=== PATIENT | female | born 1935 | race Caucasian/White ===

== ENCOUNTER 2021-10-13 17:18 | Emergency (ER) | payer MEDICARE ==
[~2021-10-13] VITALS: Ht 160 cm; Wt 79.5 kg
[2021-10-13] MEDS ORDERED: LIDOCAINE 1% INJ 50 ML (XYLOCAINE) VIAL ONE (17:23)
[2021-10-13] MEDS ORDERED: cefTRIAXone 1,000 MG VIAL IM ONE (18:00)
[2021-10-13] MEDS ORDERED: TETANUS & DIPHTHERIA TOX,ADULT 0.5 ML (TENIVAC) IM ONE (18:00)
[2021-10-13] MEDS ORDERED: LIDOCAINE 1% INJ 20 ML VIAL INJ ONE (18:00)
--- NOTE | 2021-10-13 18:17 | ED Fall/Injury ---
General Chief Complaint: Laceration Stated Complaint: FALL Nursing Triage Note: Patient presents to the ED via EMS with c/o laceration to left forearm and left upper arm avulsion. Patient reports that she tripped over some extension cords in the bathroom causing her to fall. States when she fell her arm hit the cabinent handles causing the laceration. Denies any loss of conciousness. Source: patient, EMS Exam Limitations: no limitations History of Present Illness Date Seen by Provider: Oct 13, 2021 Time Seen by Provider: 17:19 Initial Comments Right handed 85-year-old female patient brought in by EMS because a fall in her bathroom after she tripped on a cord. Patient denies head injury or loss of consciousness. Patient had left arm and forearm laceration. Patient does not remember her last tetanus immunization. Occurred: just prior to arrival Allergies and Home Medications Allergies Coded Allergies: No Known Drug Allergies (Unverified , 10/13/21) Patient Home Medication List Home Medication List Reviewed: Yes Cephalexin (Cephalexin) 500 Mg Tablet, 500 MG PO Q8H Prescribed by: Sarah martin on 10/13/211818 Review of Systems Review of Systems Constitutional: no symptoms reported Eyes: No Symptoms Reported Ears, Nose, Mouth, Throat: no symptoms reported Respiratory: no symptoms reported Cardiovascular: no symptoms reported Gastrointestinal: no symptoms reported Genitourinary: no symptoms reported Musculoskeletal: see HPI Skin: see HPI Psychiatric/Neurological: No Symptoms Reported All Other Systems Reviewed Negative Unless Noted: Yes Past Tagjlhx-Iuccgq-Cukixp Hx Patient Social History Tobacco Use?: No Substance use?: No Alcohol Use?: No Pt feels they are or have been: No Past Medical History Surgery/Hospitalization HX: Hysterectomy; CVA; Seizures; macular degeneration; HTN; High Cholesterol; B12 deficiency Physical Exam Vital Signs Vital Signs - First Documented 10/13/21 17:20 Temp 36.7 Pulse 82 Resp 18 B/P (MAP) 196/88 (124) Pulse Ox 93 O2 Delivery Room Air Capillary Refill : Less Than 3 Seconds Height, Weight, BMI Height: '" Weight: lbs. oz. kg; 31.00 BMI Method: General Appearance: mild distress HEENT: PERRL/EOMI, normal ENT inspection Neck: non-tender, full range of motion Cardiovascular: normal peripheral pulses, regular rate, rhythm, no edema Respiratory: chest non-tender, lungs clear, normal breath sounds Back: normal inspection Extremities: other (Left arm with large skin tear, large laceration of left upper forearm with exposed and lacerated fatty tissue about 10 cm and a large skin tear, no skin covering the fatty tissue) Neurologic/Psychiatric: normal mood/affect Procedures/Interventions Wound Location: Upper Extremities Wound Length (cm): 10 Wound's Depth, Shape: into muscle, irregular, flap Wound Explored: no foreign body removed Irrigated w/ Saline (ccs): 250 Betadine Prep?: No Anesthesia: 1% Lidocaine Volume Anesthetic (ccs): 5 Wound Debrided: None Suture: Vicryl Suture Size: 4-0 10 cm laceration of left forearm with exposed fatty tissue with laceration and missing skin with large skin tear was repaired with 3 sutures of Vicryl 5 oh to approximate fatty tissue. Then the skin was put in place with Dermabond and Vaseline gauze, Telfa and Coban was applied. Patient also had a skin tear of left forearm that repaired with Dermabond and Vaseline gauze and tape for and Coban was applied. Patient tolerated the procedure well. Progress/Results/Core Measures Results/Orders My Orders Orders - SARAH MARTIN MD Lidocaine 1% Inj 50 Ml (Xylocaine 1% Inj (10/13/21 17:23) Tetanus/Diphtheria Inj (Adult) (Tenivac (10/13/21 18:00) Ceftriaxone (Rocephin) (10/13/21 18:00) Lidocaine 1% Inj 20 Ml (Xylocaine 1% Inj (10/13/21 18:00) Medications Given in ED Current Medications Medications Dose Ordered Sig/Rachel Route Start Time Stop Time Status Last Admin Dose Admin Ceftriaxone Sodium 1,000 mg ONCE ONCE IM 10/13/21 18:00 10/13/21 18:01 DC 10/13/21 18:13 1,000 MG Lidocaine HCl 2.1 ml ONCE ONCE INJ 10/13/21 18:00 10/13/21 18:01 DC 10/13/21 18:13 2.1 ML Lidocaine HCl 50 ml STK-MED ONCE .ROUTE 10/13/21 17:23 10/13/21 17:25 DC 10/13/21 17:23 50 ML Tetanus/ Diphtheria Toxoids 0.5 ml ONCE ONCE IM 10/13/21 18:00 10/13/21 18:01 DC 10/13/21 18:14 0.5 ML Vital Signs/I&O 10/13/21 10/13/21 17:20 18:21 Temp 36.7 36.7 Pulse 82 82 Resp 18 18 B/P (MAP) 196/88 (124) 196/88 Pulse Ox 93 93 O2 Delivery Room Air Room Air Blood Pressure Mean: 124 Progress Progress Note : Progress Note Evaluation of patient in ER showed 85-year-old female patient with a fall at home and injury to left upper extremity with skin tear and laceration deep to subcutaneous fat without covering the skin. Subcutaneous fat was repaired with Vicryl and skin covered the subcutaneous as much as possible with applying Dermabond. Arm skin tear was repaired with Dermabond. Vaseline gauze was applied and nonadhesive dressing and Coban was applied. Patient treated with Rocephin in ER and prescription for cephalexin for 7 days was given and advised to follow-up with his primary care physician in 3 days for change of dressing and check of the wound. Patient did not want to have pain medication in ER or prescription of pain medication for home. Departure Impression Primary Impression: Laceration of left forearm Qualified Codes: S51.812A - Laceration without foreign body of left forearm, initial encounter Additional Impressions: Skin tear of left upper extremity Fall at home Qualified Codes: W19.XXXD - Unspecified fall, subsequent encounter; Y92.009 - Unspecified place in unspecified non-institutional (private) residence as the place of occurrence of the external cause Disposition: HOME, SELF-CARE Condition: Improved Departure-Patient Inst. Decision time for Depature: 18:17 Patient Instructions: Laceration Repair With Stitches ED, Preventing Falls ED, Laceration Repair With Glue (DC), Wound Care ED Add. Discharge Instructions: Keep wound clean and dry Follow-up with your primary care physician on this Tuesday Return to ER as needed All discharge instructions reviewed with patient and/or family. Voiced understanding. Scripts Cephalexin (Cephalexin) 500 Mg Tablet 500 MG PO Q8H, #20 TAB 0 Refills Prov: SARAH MARTIN MD 10/13/21 SARAH MARTIN MD Oct 13, 2021 18:17
[2021-10-13] MEDS ORDERED: CEPH500T PO (18:19)
[2021-10-13 18:21] VITALS: BP 196/88
== END 2021-10-13 18:21 | disposition home or self-care (01) ==
LOC: ER FS 17:20
DX: S51.812A Laceration without foreign body of left forearm, initial encounter (principal); S41.102A Unspecified open wound of left upper arm, initial encounter; Z23 Encounter for immunization; W01.198A Fall on same level from slipping, tripping and stumbling with subsequent striking against other object, initial encounter; Y92.002 Bathroom of unspecified non-institutional (private) residence as the place of occurrence of the external cause
CPT/HCPCS: 99283; A6223; 90714

== ENCOUNTER 2022-04-03 14:46 | Emergency (ER) | payer MEDICARE ==
[~2022-04-03] VITALS: Ht 154.9 cm; Wt 77.1 kg
[~2022-04-03 14:46] MED LIST: CEPH500T PO
[2022-04-03 15:12] LABS: BASOPHILS # (AUTO) 0.1 10^3/uL (0.0-0.1); BASOPHILS % (AUTO) 1 % (0-10); EOSINOPHILS # (AUTO) 0.3 10^3/uL (0.0-0.3); EOSINOPHILS % (AUTO) 2 % (0-10); HEMATOCRIT 28 % (35-52); HEMOGLOBIN 9.2 g/dL (11.5-16.0); LYMPHOCYTES # (AUTO) 2.2 10^3/uL (1.0-4.0); LYMPHOCYTES % (AUTO) 20 % (12-44); MEAN CORPUSCULAR HEMOGLOBIN 38 pg (25-34); MEAN CORPUSCULAR HGB CONC 34 g/dL (32-36); MEAN CORPUSCULAR VOLUME 115 fL (80-99); MEAN PLATELET VOLUME 10.3 fL (9.0-12.2); MONOCYTES # (AUTO) 0.9 10^3/uL (0.0-1.0); MONOCYTES % (AUTO) 8 % (0-12); NEUTROPHILS # (AUTO) 7.8 10^3/uL (1.8-7.8); NEUTROPHILS % (AUTO) 69 % (42-75); PLATELET COUNT 367 10^3/uL (130-400); WHITE BLOOD COUNT 11.3 10^3/uL (4.3-11.0)
--- NOTE | 2022-04-03 15:20 | ED Chest Pain ---
General Chief Complaint: Chest Pain Stated Complaint: CHEST PAIN Source: patient Exam Limitations: no limitations History of Present Illness Date Seen by Provider: Apr 03, 2022 Time Seen by Provider: 15:00 Initial Comments Patient is an 86-year-old female who presents with sided rib pain radiating underneath left breast. Pain is moderate to severe reproduces with palpation movement and position change. It is partially relieved with rest. Patient is taken ibuprofen with limited relief. She denies fall or injury and period.. No fever cough, sore throat, abdominal pain, leg pain or swelling. No other acute symptoms or complaints. Timing/Duration: 1-3 hours Severity/Quality: moderate Location: other Radiation: other Activities at Onset: other Modifying Factors: improves with other Allergies and Home Medications Allergies Coded Allergies: No Known Drug Allergies (Unverified , 10/13/21) Patient Home Medication List Home Medication List Reviewed: Yes Cephalexin (Cephalexin) 500 Mg Tablet, 500 MG PO Q8H Prescribed by: Karen herrera on 10/13/211818 Review of Systems Review of Systems Constitutional: see HPI EENTM: See HPI Respiratory: See HPI Cardiovascular: See HPI Gastrointestinal: See HPI Genitourinary: See HPI Musculoskeletal: see HPI Past Bxpmqtc-Jdgiwe-Xuebni Hx Patient Social History Tobacco Use?: No Past Medical History Surgery/Hospitalization HX: Hysterectomy; CVA; Seizures; macular degeneration; HTN; High Cholesterol; B12 deficiency Physical Exam Vital Signs Capillary Refill : Height, Weight, BMI Height: '" Weight: lbs. oz. kg; 31.00 BMI Method: General Appearance: Mild Distress (Secondary pain) HEENT: PERRL/EOMI Neck: Non Tender, Supple Respiratory: Chest Non Tender, Lungs Clear, Normal Breath Sounds Cardiovascular: Regular Rate, Rhythm, No Edema, No Gallop, Other (Reproducible back pain over mid thoracic pain. Pain reproduced with palpation and movement.) Gastrointestinal: Soft Extremity: Non Tender, No Calf Tenderness Neurologic/Psychiatric: Alert, Oriented x3 Skin: Normal Color Focused Exam Sepsis Stage: Ruled Out Procedures/Interventions Suture Size: 4-0 Progress/Results/Core Measures Results/Orders Lab Results Laboratory Tests Test 04/03/22 14:34 Range/Units White Blood Count 11.3 H 4.3-11.0 10^3/uL Red Blood Count 2.40 L 3.80-5.11 10^6/uL Hemoglobin 9.2 L 11.5-16.0 g/dL Hematocrit 28 L 35-52 % Mean Corpuscular Volume 115 H 80-99 fL Mean Corpuscular Hemoglobin 38 H 25-34 pg Mean Corpuscular Hemoglobin Concent 34 32-36 g/dL Red Cell Distribution Width 13.6 10.0-14.5 % Platelet Count 367 130-400 10^3/uL Mean Platelet Volume 10.3 9.0-12.2 fL Immature Granulocyte % (Auto) 0 % Neutrophils (%) (Auto) 69 42-75 % Lymphocytes (%) (Auto) 20 12-44 % Monocytes (%) (Auto) 8 0-12 % Eosinophils (%) (Auto) 2 0-10 % Basophils (%) (Auto) 1 0-10 % Neutrophils # (Auto) 7.8 1.8-7.8 10^3/uL Lymphocytes # (Auto) 2.2 1.0-4.0 10^3/uL Monocytes # (Auto) 0.9 0.0-1.0 10^3/uL Eosinophils # (Auto) 0.3 0.0-0.3 10^3/uL Basophils # (Auto) 0.1 0.0-0.1 10^3/uL Immature Granulocyte # (Auto) 0.0 0.0-0.1 10^3/uL Sodium Level 138 135-145 MMOL/L Potassium Level 4.3 3.6-5.0 MMOL/L Chloride Level 101 98-107 MMOL/L Carbon Dioxide Level 25 21-32 MMOL/L Anion Gap 12 5-14 MMOL/L Blood Urea Nitrogen 21 H 7-18 MG/DL Creatinine 1.01 0.60-1.30 MG/DL Estimat Glomerular Filtration Rate 54 BUN/Creatinine Ratio 21 Glucose Level 104 70-105 MG/DL Calcium Level 9.4 8.5-10.1 MG/DL Corrected Calcium 8.5-10.1 MG/DL Total Bilirubin 0.3 0.1-1.0 MG/DL Aspartate Amino Transf (AST/SGOT) 14 5-34 U/L Alanine Aminotransferase (ALT/SGPT) 15 0-55 U/L Alkaline Phosphatase 113 40-136 U/L Troponin I < 0.30 <0.30 NG/ML Total Protein 7.3 6.4-8.2 GM/DL Albumin 4.6 H 3.2-4.5 GM/DL My Orders Orders - NAZIA HEREDIA DO Cbc With Automated Diff (04/03/22 15:07) Comprehensive Metabolic Panel (04/03/22 15:07) Troponin I Fs (04/03/22 15:07) Chest 1 View Ap/Pa Only (04/03/22 15:07) Ekg Tracing (04/03/22 15:07) Hydrocodone/Apap 5/325 Tablet (Lortab 5 (04/03/22 15:30) Cyclobenzaprine Tablet (Flexeril Tablet) (04/03/22 15:30) Departure Communication (Admissions) EKG: Normal sinus rhythm, no acute ST-T wave changes. Chest x-ray: No acute cardiopulmonary disease on preliminary ED review. Patient with reproducible mechanical chest wall pain reproduces on exam. Patient with normal EKG troponin. Recommendations are supportive care watchful waiting and PCP follow-up. Patient verbalizes understanding agreement discharge instructions prior to departure Impression Primary Impression: Chest wall pain Disposition: 01 HOME, SELF-CARE Condition: Stable Departure-Patient Inst. Decision time for Depature: 15:32 Referrals: GUSTAVO LAWTON MD (PCP) Primary Care Physician Patient Instructions: Upper Back Pain Add. Discharge Instructions: You were evaluated in the emergency department for back pain likely related to displaced rib. Please take ibuprofen for pain and hydrocodone and Flexeril as needed for additional relief. Avoid strenuous physical activity and heavy lifting. Follow-up with your PCP in 3 to 5 days for reevaluation if symptoms persist. Return to the ED if new or concerning symptoms. All discharge instructions reviewed with patient and/or family. Voiced understanding. NAZIA HEREDIA DO Apr 03, 2022 15:20
[2022-04-03 15:21] LABS: ALANINE AMINOTRANSFERASE 15 U/L (0-55); ALBUMIN 4.6 GM/DL (3.2-4.5); ALKALINE PHOSPHATASE 113 U/L (40-136); BILIRUBIN,TOTAL 0.3 MG/DL (0.1-1.0); BUN/CREATININE RATIO 21; CALCIUM 9.4 MG/DL (8.5-10.1); CARBON DIOXIDE 25 MMOL/L (21-32); CHLORIDE 101 MMOL/L (98-107); CREATININE SERUM 1.01 MG/DL (0.60-1.30); GFR ESTIMATED 54; GLUCOSE 104 MG/DL (70-105); POTASSIUM 4.3 MMOL/L (3.6-5.0); SODIUM 138 MMOL/L (135-145); TOTAL PROTEIN 7.3 GM/DL (6.4-8.2)
--- NOTE | 2022-04-03 15:26 | Diagnostic Imaging Report ---
PATIENT HISTORY: CP. TECHNIQUE: Single frontal view of the chest. COMPARISON: None. FINDINGS: The lung volumes are normal. No focal consolidation is seen. No large pleural effusion or pneumothorax is seen. The cardiomediastinal silhouette is normal in size and contour. No acute osseous abnormality is seen. IMPRESSION: No acute pulmonary abnormality seen. Dictated by: Dictated on workstation # [id number]
[2022-04-03] MEDS ORDERED: HYDROcodone/APAP 5 MG/325 MG (LORTAB) TAB PO ONE (15:30)
[2022-04-03] MEDS ORDERED: CYCLOBENZAPRINE 10 MG (FLEXERIL) TAB PO SCH (15:30)
[2022-04-03 15:39] VITALS: BP 152/67
[2022-04-03] MEDS ORDERED: ACHD5005 PO (15:54)
[2022-04-03] MEDS ORDERED: CYCL10TA25 PO (15:54)
== END 2022-04-03 15:41 | disposition home or self-care (01) ==
LOC: EDUNIT# 14:46 → ER FS 14:47
DX: R07.89 Other chest pain (principal)
CPT/HCPCS: 36415; 71045; 80053; 84484; 85025; 93005

== ENCOUNTER 2022-05-04 16:01 | Emergency (ER) | payer MEDICARE ==
[~2022-05-04] VITALS: Ht 154 cm; Wt 81.0 kg
[~2022-05-04 16:01] MED LIST changes: +ACHD5005 PO; +CYCL10TA25 PO
[2022-05-04 16:56] LABS: BASOPHILS # (AUTO) 0.1 10^3/uL (0.0-0.1); BASOPHILS % (AUTO) 1 % (0-10); EOSINOPHILS # (AUTO) 0.1 10^3/uL (0.0-0.3); EOSINOPHILS % (AUTO) 1 % (0-10); LYMPHOCYTES % (AUTO) 22 % (12-44); MEAN CORPUSCULAR HEMOGLOBIN 36 pg (25-34); MEAN CORPUSCULAR HGB CONC 33 g/dL (32-36); MEAN CORPUSCULAR VOLUME 110 fL (80-99); MEAN PLATELET VOLUME 12.4 fL (9.0-12.2); MONOCYTES # (AUTO) 0.7 10^3/uL (0.0-1.0); MONOCYTES % (AUTO) 7 % (0-12); NEUTROPHILS # (AUTO) 6.5 10^3/uL (1.8-7.8); NEUTROPHILS % (AUTO) 69 % (42-75); PLATELET COUNT 273 10^3/uL (130-400); WHITE BLOOD COUNT 9.3 10^3/uL (4.3-11.0)
[2022-05-04 16:57] LABS: BILIRUBIN,URINE NEGATIVE (NEGATIVE); CLARITY,URINE SL CLOUDY; COLOR,URINE YELLOW; GLUCOSE, URINE (UA) NEGATIVE (NEGATIVE); KETONES,URINE NEGATIVE (NEGATIVE); LEUKOCYTE ESTERASE ,URINE TRACE (NEGATIVE); NITRITE,URINE POSITIVE (NEGATIVE); PROTEIN,URINE TRACE (NEGATIVE)
[2022-05-04 17:02] LABS: HEMOGLOBIN 6.4 g/dL (11.5-16.0)
[2022-05-04 17:03] LABS: HEMATOCRIT 19 % (35-52)
--- NOTE | 2022-05-04 17:05 | ED General ---
General Chief Complaint: General Problems/Pain Stated Complaint: LOW HEMOGLOBIN, LOW KIDNEY FUNCTION, ABNORMAL LABS Nursing Triage Note: Patient has presented to ER with cc of needing labs repeated. She had labs drawn last week and the results were off and she was called today to go to the ER for labs to be redrawn. Her only complaint is that she has a sore on her bottom. History of Present Illness Date Seen by Provider: May 04, 2022 Time Seen by Provider: 16:14 Initial Comments 86-year-old female with PMH of HTN, is sent here by her PCP office due to abnormal lab values from labs drawn a week ago in the clinic. Patient was told to come into the ER to repeat labs. Patient has no symptoms whatsoever at this time. Patient has no history of anemia and has never needed a blood transfusion before. Patient denies melena, hematemesis, hematuria, abdominal pain or chest pain. Patient does not take any blood thinners Allergies and Home Medications Allergies Coded Allergies: No Known Drug Allergies (Unverified , 10/13/21) Patient Home Medication List Home Medication List Reviewed: Yes Cephalexin (Cephalexin) 500 Mg Tablet, 500 MG PO Q8H Prescribed by: Karen herrera on 10/13/21 181 Cyclobenzaprine HCl (Cyclobenzaprine HCl) 10 Mg Tablet, 10 MG PO Q8H PRN for SPASMS Prescribed by: NAZIA HEREDIA on 04/03/22 1554 Hydrocodone/Acetaminophen (Hydrocodone-Acetamin 5-325 mg) 5 Mg-325 Mg Tablet, 1 TAB PO Q4H PRN for PAIN-MODERATE (5-7) Prescribed by: NAZIA HEREDIA on 04/03/22 1555 Review of Systems Review of Systems Constitutional: no symptoms reported EENTM: no symptoms reported Respiratory: no symptoms reported Cardiovascular: no symptoms reported Gastrointestinal: no symptoms reported Genitourinary: no symptoms reported Musculoskeletal: no symptoms reported Skin: lesions Psychiatric/Neurological: No Symptoms Reported Hematologic/Lymphatic: No Symptoms Reported Immunological/Allergic: no symptoms reported Past Ckdrnvo-Uvqyef-Fnpxmh Hx Patient Social History Tobacco Use?: No Use of E-Cig and/or Vaping dev: No Substance use?: No Alcohol Use?: No Past Medical History Surgery/Hospitalization HX: Hysterectomy; CVA; Seizures; macular degeneration; HTN; High Cholesterol; B12 deficiency Physical Exam Vital Signs Vital Signs - First Documented 05/04/22 16:39 Temp 36.0 Pulse 73 Resp 16 B/P (MAP) 165/73 (103) Pulse Ox 99 O2 Delivery Room Air Capillary Refill : Height, Weight, BMI Height: '" Weight: lbs. oz. kg; 34.00 BMI Method: General Appearance: No Apparent Distress, WD/WN HEENT: PERRL/EOMI, Normal ENT Inspection Neck: Full Range of Motion, Normal Inspection Respiratory: Chest Non Tender, Lungs Clear Cardiovascular: Regular Rate, Rhythm Gastrointestinal: Normal Bowel Sounds, Non Tender, Soft Back: Normal Inspection, No CVA Tenderness Neurologic/Psychiatric: Alert, Oriented x3, No Motor/Sensory Deficits Skin: Other (Patient has an early decubitus ulcer on her right buttock. Patient has bruising on her anterior shins as well as the right side of her face on her maxilla.) Lymphatic: No Adenopathy Procedures/Interventions Suture Size: 4-0 Progress/Results/Core Measures Suspected Sepsis SIRS Temperature: Pulse: 73 Respiratory Rate: 16 Laboratory Tests 05/04/22 16:30: White Blood Count 9.3 Blood Pressure 165 /73 Mean: 103 Laboratory Tests 05/04/22 16:30: Creatinine 1.42H, Platelet Count 273, Total Bilirubin < 0.2 Results/Orders Lab Results Laboratory Tests Test 05/04/22 16:15 05/04/22 16:30 Range/Units Urine Color YELLOW Urine Clarity SL CLOUDY Urine pH 6.0 5-9 Urine Specific [place] 1.015 L 1.016-1.022 Urine Protein TRACE H NEGATIVE Urine Glucose (UA) NEGATIVE NEGATIVE Urine Ketones NEGATIVE NEGATIVE Urine Nitrite POSITIVE H NEGATIVE Urine Bilirubin NEGATIVE NEGATIVE Urine Urobilinogen 0.2 < = 1.0 MG/DL Urine Leukocyte Esterase TRACE H NEGATIVE Urine RBC (Auto) TRACE-I H NEGATIVE Urine RBC 2-5 H /HPF Urine WBC 25-50 H /HPF Urine Squamous Epithelial Cells 0-2 /HPF Urine Crystals NONE /LPF Urine Bacteria LARGE H /HPF Urine Casts NONE /LPF Urine Mucus NEGATIVE /LPF Urine Culture Indicated YES White Blood Count 9.3 4.3-11.0 10^3/uL Red Blood Count 1.76 L 3.80-5.11 10^6/uL Hemoglobin 6.4 *L 11.5-16.0 g/dL Hematocrit 19 *L 35-52 % Mean Corpuscular Volume 110 H 80-99 fL Mean Corpuscular Hemoglobin 36 H 25-34 pg Mean Corpuscular Hemoglobin Concent 33 32-36 g/dL Red Cell Distribution Width 14.0 10.0-14.5 % Platelet Count 273 130-400 10^3/uL Mean Platelet Volume 12.4 H 9.0-12.2 fL Immature Granulocyte % (Auto) 0 % Neutrophils (%) (Auto) 69 42-75 % Lymphocytes (%) (Auto) 22 12-44 % Monocytes (%) (Auto) 7 0-12 % Eosinophils (%) (Auto) 1 0-10 % Basophils (%) (Auto) 1 0-10 % Neutrophils # (Auto) 6.5 1.8-7.8 10^3/uL Lymphocytes # (Auto) 2.0 1.0-4.0 10^3/uL Monocytes # (Auto) 0.7 0.0-1.0 10^3/uL Eosinophils # (Auto) 0.1 0.0-0.3 10^3/uL Basophils # (Auto) 0.1 0.0-0.1 10^3/uL Immature Granulocyte # (Auto) 0.0 0.0-0.1 10^3/uL Sodium Level 137 135-145 MMOL/L Potassium Level 3.2 L 3.6-5.0 MMOL/L Chloride Level 103 98-107 MMOL/L Carbon Dioxide Level 25 21-32 MMOL/L Anion Gap 9 5-14 MMOL/L Blood Urea Nitrogen 27 H 7-18 MG/DL Creatinine 1.42 H 0.60-1.30 MG/DL Estimat Glomerular Filtration Rate 36 BUN/Creatinine Ratio 19 Glucose Level 104 70-105 MG/DL Calcium Level 8.3 L 8.5-10.1 MG/DL Corrected Calcium 8.9 8.5-10.1 MG/DL Magnesium Level 1.7 1.6-2.4 MG/DL Total Bilirubin < 0.2 0.1-1.0 MG/DL Aspartate Amino Transf (AST/SGOT) 14 5-34 U/L Alanine Aminotransferase (ALT/SGPT) 17 0-55 U/L Alkaline Phosphatase 74 40-136 U/L Total Protein 6.3 L 6.4-8.2 GM/DL Albumin 3.2 3.2-4.5 GM/DL My Orders Orders - CHARISMA,BRITT L MD Cbc With Automated Diff (05/04/22 16:14) Comprehensive Metabolic Panel (05/04/22 16:14) Magnesium (05/04/22 16:14) Ua Culture If Indicated (05/04/22 16:14) Urine Culture (05/04/22 16:15) Occult Blood Stool (05/04/22 17:59) Fecal Occult Bedside (05/04/22 17:59) Ct Abdomen/Pelvis Wo (05/04/22 18:01) Chest 1 View Ap/Pa Only (05/04/22 18:02) Iron Tibc %Sat & Ferritin (05/04/22 18:02) Vital Signs/I&O 05/04/22 16:39 Temp 36.0 Pulse 73 Resp 16 B/P (MAP) 165/73 (103) Pulse Ox 99 O2 Delivery Room Air Capillary Refill : Blood Pressure Mean: 103 Progress Note : Progress Note 1. ACUTE ANEMIA: - Hb is 6.4 in the ER. One week ago, it was 7.2 and in Feb 2022 it was 9. - Iron studies sent - CT ABD: No acute finding - CXR: Normal - Pt will need to be transferred for type & screen and blood transfusion. Discussed with Dr. Jennings and patient excepted to [facility] -Patient is asymptomatic with stable vitals 2. ACUTE KIDNEY INJURY: - s. Creatinine is 1.42 - One week afo the creatinine was 1.7. so there is improvement - Could be triggered by UTI 3. ACUTE CYSTITIS WITH HEMATURIA: - UA is positive for leukocyte esterase, nitrates, bacteria, RBCs. -Ceftriaxone 1 g IV stat in the ER 4. MILD HYPOKALEMIA: - s. K is 3.2 - Oral potassium given in ER 40mEq oral Diagnostic Imaging Diagonstic Imaging: Xray, CT Plain Films/CT/US/NM/MRI: chest, abdomen Comments [facility]. [place], [place] NAME: LETICIA LOMAX Elly [facility] REC#: [id number] PT STATUS: REG ER : 1935 PHYSICIAN: BRITT ZAFAR MD ADMIT DATE: 05/04/22/ER FS Draft Date of Exam:05/04/22 CT ABDOMEN/PELVIS WO PROCEDURE: CT abdomen and pelvis without contrast. TECHNIQUE: Multiple contiguous axial images were obtained through the abdomen and pelvis without the use of intravenous contrast. Auto Exposure Controls were utilized during the CT exam to meet ALARA standards for radiation dose reduction. INDICATION: Low hemoglobin. No prior studies are available for comparison. Lung bases are clear. The liver and gallbladder are unremarkable. There is no biliary duct dilatation. Pancreas and spleen are unremarkable. No adrenal mass on the right is detected. There is a nodule in the left adrenal gland measuring 18 mm. No calculi or hydronephrosis is identified. Aorta is heavily calcified. The bowel loops are normal in caliber. There is extensive diverticulosis of the sigmoid but no evidence of acute diverticulitis. No free fluid or fluid collection is seen. There is no free air. Bladder is decompressed. Uterus is surgically absent. IMPRESSION: 1. Uncomplicated diverticulosis. 2. No evidence of intraperitoneal or retroperitoneal hemorrhage. 3. Left adrenal nodule, indeterminate. Dictated on workstation # [id number] Dict: 05/04/221858 Trans: 05/04/221908 SOM [id number] Interpreted by: JOSE R HAGEN MD Electronically signed by: [facility] [place] [place] NAME: LETICIA LOMAX [facility] REC#: [id number] PT STATUS: REG ER : 1935 PHYSICIAN: BRITT ZAFAR MD ADMIT DATE: 05/04/22/ER FS Draft Date of Exam:05/04/22 CHEST 1 VIEW AP/PA ONLY PATIENT HISTORY: low Hb. TECHNIQUE: Single frontal view of the chest. COMPARISON: 04/03/2022 FINDINGS: The lung volumes are normal. No focal consolidation is seen. No large pleural effusion or pneumothorax is seen. The cardiomediastinal silhouette is normal in size and contour. No acute osseous abnormality is seen. IMPRESSION: No acute pulmonary abnormality seen. Dictated on workstation # [id number] Dict: 05/04/22 190 Trans: 05/04/221904 SOM [id number] Interpreted by: CIRO GAMBOA MD Electronically signed by: Departure Communication (Admissions) Time/Spoke to Admitting Phy: 18:[address] Quiroga and will admit to [facility] Impression Primary Impression: Acute anemia Additional Impressions: Acute cystitis with hematuria Acute kidney injury Hypokalemia Disposition: XFER SHT-TRM HOSP Condition: Stable Admissions Decision to Admit Reason: Admit from ER (General) Decision to Admit/Date: May 04, 2022 Time/Decision to Admit Time: 18:00 Transfer Transfer Reason: Exceeds level of care Time Spoke to Accepting Phy: 18:20 Transfer Progress Notes Discussed with Dr. Quiroga Transfer Facility: [facility] Method of Transfer: EMS Departure-Patient Inst. Referrals: SELFGUSTAVO MD (PCP/Family) Primary Care Physician BRITT ZAFAR MD May 04, 2022 17:05
[2022-05-04 17:07] LABS: BACTERIA,URINE LARGE /HPF; SQUAMOUS EPITHELIAL CELL,UR 0-2 /HPF; WBC,URINE 25-50 /HPF
[2022-05-04 17:11] LABS: ALANINE AMINOTRANSFERASE 17 U/L (0-55); ALKALINE PHOSPHATASE 74 U/L (40-136); BILIRUBIN,TOTAL < 0.2 MG/DL (0.1-1.0); BUN/CREATININE RATIO 19; CALCIUM 8.3 MG/DL (8.5-10.1); CARBON DIOXIDE 25 MMOL/L (21-32); CHLORIDE 103 MMOL/L (98-107); CREATININE SERUM 1.42 MG/DL (0.60-1.30); GFR ESTIMATED 36; GLUCOSE 104 MG/DL (70-105); MAGNESIUM 1.7 MG/DL (1.6-2.4); POTASSIUM 3.2 MMOL/L (3.6-5.0); SODIUM 137 MMOL/L (135-145); TOTAL PROTEIN 6.3 GM/DL (6.4-8.2)
[2022-05-04 17:12] LABS: ALBUMIN 3.2 GM/DL (3.2-4.5)
[2022-05-04] MEDS ORDERED: cefTRIAXone 1 GM PRE-MIX 50 ML IV STA (19:01)
--- NOTE | 2022-05-04 19:05 | Diagnostic Imaging Report ---
PATIENT HISTORY: low Hb. TECHNIQUE: Single frontal view of the chest. COMPARISON: 04/03/2022 FINDINGS: The lung volumes are normal. No focal consolidation is seen. No large pleural effusion or pneumothorax is seen. The cardiomediastinal silhouette is normal in size and contour. No acute osseous abnormality is seen. IMPRESSION: No acute pulmonary abnormality seen. Dictated by: Dictated on workstation # [id number]
--- NOTE | 2022-05-04 19:10 | Diagnostic Imaging Report ---
PROCEDURE: CT abdomen and pelvis without contrast. TECHNIQUE: Multiple contiguous axial images were obtained through the abdomen and pelvis without the use of intravenous contrast. Auto Exposure Controls were utilized during the CT exam to meet ALARA standards for radiation dose reduction. INDICATION: Low hemoglobin. No prior studies are available for comparison. Lung bases are clear. The liver and gallbladder are unremarkable. There is no biliary duct dilatation. Pancreas and spleen are unremarkable. No adrenal mass on the right is detected. There is a nodule in the left adrenal gland measuring 18 mm. No calculi or hydronephrosis is identified. Aorta is heavily calcified. The bowel loops are normal in caliber. There is extensive diverticulosis of the sigmoid but no evidence of acute diverticulitis. No free fluid or fluid collection is seen. There is no free air. Bladder is decompressed. Uterus is surgically absent. IMPRESSION: 1. Uncomplicated diverticulosis. 2. No evidence of intraperitoneal or retroperitoneal hemorrhage. 3. Left adrenal nodule, indeterminate. Dictated by: Dictated on workstation # [id number]
[2022-05-04] MEDS ORDERED: KCL 20 MEQ TAB (K-DUR) PO ONE (19:15)
[2022-05-04 20:15] VITALS: BP 113/85
== END 2022-05-04 20:15 | disposition short-term general hospital (02) ==
LOC: EDUNIT# 16:01 → ER FS 16:04
DX: D64.9 Anemia, unspecified (principal); N30.01 Acute cystitis with hematuria; N17.9 Acute kidney failure, unspecified; E87.6 Hypokalemia; S00.83XA Contusion of other part of head, initial encounter; S80.11XA Contusion of right lower leg, initial encounter; X58.XXXA Exposure to other specified factors, initial encounter
CPT/HCPCS: 36415; 71045; 74176; 80053; 81000; 82274; 82728; 83540; 83550; 83735; 85025; 87077; 87088; 87186

== ENCOUNTER → 2022-05-05 | Outpatient (CLI) | payer MEDICARE ==
[2022-05-05 11:43] LABS: ABSOLUTE RETIC # 19 10e9/uL (24-90); RETICULOCYTE % 1.04 % (0.50-2.40)
[2022-05-05 12:55] LABS: BAND NEUTROPHILS 5 %; EOSINOPHILS % (MANUAL) 2 %; LYMPHOCYTES % (MANUAL) 11 %; MONOCYTES % (MANUAL) 4 %; NEUTROPHILS % (MANUAL) 78 %
[2022-05-05 13:00] LABS: ANISOCYTOSIS SLIGHT
[2022-05-05 13:09] LABS: NUCLEATED RED BLOOD CELLS 1
== END ==
LOC: LABNPT 11:32
PROVIDERS: ATTEND Internal Medicine
DX: Z01.89 Encounter for other specified special examinations (principal)
CPT/HCPCS: 85007; 85045; 85055